=== PATIENT | female | born 1980 | race Two or more races ===

== ENCOUNTER 2017-07-07 19:32 | Emergency (ER) | payer OTHER ==
[~2017-07-07] VITALS: Ht 160 cm; Wt 69.2 kg
[2017-07-07 19:35] VITALS: BP 113/70
[2017-07-07] MEDS ORDERED: LIDOCAINE 1%, 20ML SQ ONE (20:00)
[2017-07-07] MEDS ORDERED: DIPH,PERTUSS(ACELL),TET VAC/PF 0.5 ML IM-VACC ONE ×2 (20:00→20:01)
[2017-07-07] MEDS ORDERED: LIDOCAINE 1%, 20ML ONE ×2 (20:01→20:16)
[2017-07-07] MEDS ORDERED: BACITRACIN ZINC OINT 500U/GM, 0.9 GM ONE (21:21)
== END 2017-07-07 21:35 | disposition home or self-care (01) ==
LOC: ED 21:15
DX: S61.012A Laceration without foreign body of left thumb without damage to nail, initial encounter (principal); S61.011A Laceration without foreign body of right thumb without damage to nail, initial encounter; W25.XXXA Contact with sharp glass, initial encounter; Y93.89 Activity, other specified; Y92.009 Unspecified place in unspecified non-institutional (private) residence as the place of occurrence of the external cause; Y99.9 Unspecified external cause status
CPT/HCPCS: 12001; 12041; 73130; 90471; 90715; 99284; J3490

== ENCOUNTER 2018-10-17 09:32 | Day surgery (SDC) | payer OTHER ==
[~2018-10-17] VITALS: Ht 160 cm; Wt 68.2 kg
[2018-10-17 10:00] LABS: BASOPHILS # (AUTO) 0.03 x10^3/uL (0-0.1); BASOPHILS % (AUTO) 1 % (0-1); EOSINOPHILS % (AUTO) 1 % (1-7); LYMPHOCYTES # (AUTO) 2.12 x10^3/uL (1-3.4); LYMPHOCYTES % (AUTO) 30 % (22-44); MD NO; MEAN CORPUSCULAR HEMOGLOBIN 30.3 pg (27.0-34.8); MEAN CORPUSCULAR HGB CONC 33.5 g/dL (32.4-35.8); MEAN CORPUSCULAR VOLUME 90.5 fL (80-100); MEAN PLATELET VOLUME 8.1 fL (7.4-10.4); MONOCYTES # (AUTO) 0.57 x10^3/uL (0.2-0.8); MONOCYTES % (AUTO) 8 % (2-9); NEUTROPHILS # (AUTO) 4.14 x10^3/uL (1.8-6.8); NEUTROPHILS % (AUTO) 60 % (42-75); PLATELET COUNT 282 x10^3/uL (130-400); RED BLOOD COUNT 4.84 x10^6/uL (3.82-5.3); RED CELL DISTRIBUTION WIDTH 13.1 % (9.6-15.2)
[2018-10-17] MEDS ORDERED: SODIUM CHLORIDE FLUSH 10ML SYR IVF ONE (10:00)
[2018-10-17] MEDS ORDERED: MORPHINE SULFATE 4 MG/ML, 1ML IVPush PRN (10:00)
[2018-10-17] MEDS ORDERED: ONDANSETRON 2MG/ML, 2ML IVPush ONE (10:00)
[2018-10-17] MEDS ORDERED: MORPHINE SULFATE 4 MG/ML, 1ML ONE (10:01)
[2018-10-17] MEDS ORDERED: ONDANSETRON 2MG/ML, 2ML ONE ×2 (10:01→17:45)
[2018-10-17 10:12] LABS: ALBUMIN 3.6 g/dL (3.4-5.0); ANION GAP 3 mmol/L (5-15); CALCIUM 8.8 mg/dL (8.5-10.1); CHLORIDE 109 mmol/L (98-107)
[2018-10-17] MEDS ORDERED: DIPHENHYDRAMINE 50 MG/ML, 1ML ONE (10:16)
[2018-10-17] MEDS ORDERED: methylPREDNISolone SOD SUCC 125 MG/2 ML ONE (10:16)
[2018-10-17] MEDS ORDERED: FAMOTIDINE 20 MG/2 ML ONE (10:16)
[2018-10-17 10:25] VITALS: BP 137/66
--- NOTE | 2018-10-17 10:29 | NUR ---
PATIENT DEVELOPED LARGE RED WELTS TO RIGHT FOREARM AFTER MORPHINE AND ZOFRAN ADMINISTRATION. MD NOTIFIED AND SOLUMEDROL AND PEPCID AND BENADRL IV. VSS AND PROCESS EXPLAINED TO PATIENT. ALLERGIES ADDED TO LIST
[2018-10-17] MEDS ORDERED: FAMOTIDINE 20 MG/2 ML IVPush ONE (10:30)
[2018-10-17] MEDS ORDERED: methylPREDNISolone SOD SUCC 125 MG/2 ML IVPush ONE (10:30)
[2018-10-17] MEDS ORDERED: DIPHENHYDRAMINE 25 MG CAPSULE PO ONE (10:30)
[2018-10-17] MEDS ORDERED: ETOMIDATE 20 MG/10 ML ONE (11:33)
[2018-10-17] MEDS ORDERED: POTASSIUM CHLORIDE 20 MEQ in D5%-0.45% NACL 1,000 ML IV ONE (12:53)
[2018-10-17] MEDS ORDERED: HYDROmorphone 2 MG/ML, 1ML IVPush PRN ×2 (13:00→17:30)
[2018-10-17] MEDS ORDERED: HYDROmorphone 1 MG/ML, 1ML IV ONE (13:00)
[2018-10-17] MEDS ORDERED: SODIUM CHLORIDE FLUSH 10ML SYR IVF PRN (13:00)
--- NOTE | 2018-10-17 13:09 | NUR ---
1215 LATE ENTRY: ASSUMED CARE OF PT. PT RESTING IN [facility] AFTER ANKLE REDUCTION. PT MEDICATED FOR PAIN. AWAITING ROOM ASSIGNMENT.
--- NOTE | 2018-10-17 14:10 | NUR ---
TASK RN: KATHE RPT TO [facility]
[2018-10-17] MEDS ORDERED: HYDROmorphone 1 MG/ML, 1ML ONE (14:14)
--- NOTE | 2018-10-17 14:16 | NUR ---
FIRST CONTACT WITH PT. PAIN MEDICATION ADMINISTERED PER EMAR. NO ACUTE DISTRESS NOTED. FAMILY BEDSIDE. AWAITING TRANSFER TO PRE OP.
--- NOTE | 2018-10-17 14:20 | NUR ---
PT BEING TRANSFERRED TO PRE OP. PRIMARY RN AWARE OF PAIN MEDICATION ADMINISTERED. PT LEFT WITH ALL PERSONAL BELONGINGS.
[2018-10-17 14:52] VITALS: BP 120/78
[2018-10-17] MEDS ORDERED: FENTANYL PF 250 MCG/5ML ONE (16:29)
[2018-10-17] MEDS ORDERED: MIDAZOLAM 1 MG/ML, 2ML ONE (16:29)
[2018-10-17] MEDS ORDERED: ONDANSETRON 2MG/ML, 2ML IV PRN (17:30)
[2018-10-17] MEDS ORDERED: PROMETHAZINE 25 MG/ML, 1ML IV PRN (17:30)
[2018-10-17] MEDS ORDERED: FENTANYL PF 100 MCG/2ML IV PRN (17:30)
[2018-10-17] MEDS ORDERED: MIDAZOLAM 1 MG/ML, 2ML IV PRN (17:30)
[2018-10-17] MEDS ORDERED: MEPERIDINE/PF 25MG/0.5ML IVPush PRN (17:30)
[2018-10-17] MEDS ORDERED: OXYcodone 5 MG/5 ML ORAL.SOL UDC PO PRN (17:30)
[2018-10-17] MEDS ORDERED: hydrALAzine 20 MG/ML, 1ML IV PRN (17:30)
[2018-10-17] MEDS ORDERED: ACETAMINOPHEN 325 MG TABLET PO PRN (17:30)
[2018-10-17] MEDS ORDERED: ALBUTEROL/IPRATROPIUM 2.5MG/0.5MG, 3 ML NPPB PRN (17:30)
[2018-10-17] MEDS ORDERED: KETOROLAC 30 MG/1 ML IV PRN (17:30)
[2018-10-17] MEDS ORDERED: SCOPOLAMINE PATCH, 1.5MG PATCH.TD72 TD PRN (17:30)
[2018-10-17] MEDS ORDERED: CEFAZOLIN 1,000 MG ONE (17:45)
[2018-10-17] MEDS ORDERED: PROPOFOL 10 MG/ML, 20ML ONE (17:45)
[2018-10-17] MEDS ORDERED: LIDOCAINE-MPF 2% ,5ML ONE (17:45)
[2018-10-17] MEDS ORDERED: BUPIVACAINE/PF 0.5% ONE (17:45)
[2018-10-17] MEDS ORDERED: DEXAMETHASONE 4 MG/ML, 1ML ONE (17:45)
[2018-10-17] MEDS ORDERED: KETOROLAC 30 MG/1 ML ONE (18:13)
[2018-10-17] MEDS ORDERED: OXYcodone 5 MG/5 ML ORAL.SOL UDC ONE (18:14)
[2018-10-17] MEDS ORDERED: MEPERIDINE/PF 25MG/ML,1ML ONE (18:33)
[2018-10-17] MEDS ORDERED: DOCU-131 PO (20:05)
[2018-10-17] MEDS ORDERED: HYDR-3240 PO (20:06)
== END 2018-10-17 20:39 | disposition home or self-care (01) ==
LOC: ED 11:13 → OR 12:53 → EDIP 12:53 → UNDOADMIN 12:53 → 4NOR 19:46 → EDIP 19:46 → OR 20:39 → UNDODISIN 20:39
PROVIDERS: ATTEND Emergency Medicine
DX: S82.852A Displaced trimalleolar fracture of left lower leg, initial encounter for closed fracture (principal); W18.39XA Other fall on same level, initial encounter; Y93.89 Activity, other specified; Y92.89 Other specified places as the place of occurrence of the external cause; Y99.8 Other external cause status; Z88.6 Allergy status to analgesic agent; Z91.018 Allergy to other foods
CPT/HCPCS: 27822; 36415; 73590; 73600; 73610; 76000; 80048; 82040; 84703; 85025; 96374; 96375; 99285; C1713; J0690; J1100; J1170; J1885; J2175; J2250; J2405; J2704; J2930; J3010; J3490; G0378